=== PATIENT | male | born 2000 | race Caucasian/White ===

== ENCOUNTER 2023-11-15 20:14 | Emergency (ER) | payer OTHER, BC, SELFPAY ==
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
[2023-11-15 20:17] VITALS: BP 124/76; PULSE 67; RESP 19; TEMP 36.6; O2SAT 100
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
[2023-11-15 21:03] VITALS: PULSE 65; RESP 14; O2SAT 100
== END 2023-11-15 21:04 | disposition home or self-care (01) ==
LOC: ANHED 20:46
PROVIDERS: Emergency Provider Emergency Medicine; PCP Family Medicine Adolescent Medicine
DX: S80.12XA Contusion of left lower leg, initial encounter (principal); S29.012A Strain of muscle and tendon of back wall of thorax, initial encounter; V43.52XA Car driver injured in collision with other type car in traffic accident, initial encounter
CPT/HCPCS: 73590; 99283